=== PATIENT | female | born 1965 | race Caucasian/White ===

== ENCOUNTER 2017-01-14 18:23 | Emergency (ER) | payer BC ==
[~2017-01-14] VITALS: Ht 157.5 cm; Wt 68.1 kg
[~2017-01-14 18:23] MED LIST: HYDROCHLOROTHIA25 MG PO; LISINOPRIL10 MG PO; PANTOPRAZOLE SO40 MG PO; TRI-LINYAH1 EACH PO; ZANTAC300 MG PO
[2017-01-14] MEDS ORDERED: NAPROSYN500 MG PO (20:10)
[2017-01-14] MEDS ORDERED: MEDROL DOSEPAK4 MG PO (20:11)
[2017-01-14] MEDS ORDERED: VALIUM5 MG PO (20:11)
[2017-01-14 20:38] VITALS: BP 110/68
== END 2017-01-14 20:38 | disposition home or self-care (01) ==
LOC: EME 18:23
DX: M54.41 Lumbago with sciatica, right side (principal)
CPT/HCPCS: 99281; 99284; J1100